=== PATIENT | male | born 1995 | race Caucasian/White ===

== ENCOUNTER 2017-12-29 16:30 | Emergency (ER) | payer SELFPAY ==
[~2017-12-29] VITALS: Ht 172.7 cm; Wt 75.0 kg
[2017-12-29] MEDS ORDERED: KETOROLAC 60MG/2ML VIAL IM ONE ×2 (17:15→18:15)
[2017-12-29 18:43] VITALS: BP 112/71
== END 2017-12-29 19:28 | disposition home or self-care (01) ==
LOC: ER 18:18
DX: S20.212A Contusion of left front wall of thorax, initial encounter (principal); V89.2XXA Person injured in unspecified motor-vehicle accident, traffic, initial encounter; Y93.89 Activity, other specified; Y92.89 Other specified places as the place of occurrence of the external cause; Y99.8 Other external cause status
CPT/HCPCS: 71111; 74176; 99284